=== PATIENT | female | born 1945 | race Caucasian/White ===

== ENCOUNTER 2019-02-13 17:06 | Emergency (ER) | payer MEDICARE, OTHER, SELFPAY ==
[2019-02-13 17:10] VITALS: BMI 32.0
--- NOTE | 2019-02-13 17:12 | ED_ITS ---
Entered by Rich Cevallos, acting as scribe for Documented by User: Fany Benítez MD 02/13/19 20:30 HPI - SOB/Dyspnea General: Chief Complaint: Shortness of Breath/Dyspnea Stated Complaint: sob,cp Time Seen by Provider: 02/13/19 17:14 PFSH ED PFSH: Statuses (acute, chronic, etc) shown below reflect problem list status as previously entered and may not be historically accurate Social History Smoking and tobacco status: never smoked Course Vital Signs: Vital signs: Vital Signs Temperature 98.3 F 02/13/19 17:13 Pulse Rate 88 02/13/19 20:24 Respiratory Rate 20 H 02/13/19 20:24 Blood Pressure 121/61 02/13/19 20:24 Pulse Oximetry 95 02/13/19 20:24 MDM - SOB/Dyspnea MDM Narrative: Medical decision making narrative: I took this patient over from Dr. Aiken. Patient has a long history of pulmonary fibrosis with an upper respiratory infection. She is to continue her Levaquin and I will increase her dose of prednisone over the next 5 days. She is in minimal distress here and is stable for discharge. She is to follow-up with her primary care doctor in 3 to 5 days and return if worsening. Lab Data: Labs: Lab Results 02/13/19 02/13/19 02/13/19 Range/Units 17:25 17:25 17:27 WBC 8.8 (4.0-10.0) 10^3/ uL RBC 3.86 L (4.1-5.3) 10^6/u L Hgb 12.0 (11.5-15.3) g/dL Hct 39.2 (37.0-47.0) % MCV 101.6 H (81-99) fL MCH 31.1 (28.0-34.0) pg MCHC 30.6 (30.0-36.0) g/dL RDW 13.5 (12.1-15.1) % Plt Count 217 (130-400) 10^3/c mm MPV 8.8 (7.4-10.4) fL Neut % (Auto) 74.8 % Lymph % (Auto) 14.5 % [place] % (Auto) 8.2 % Eos % (Auto) 1.8 % Baso % (Auto) 0.2 % Neut # (Auto) 6.6 (1.8-7.7) 10^3/u L Lymph # (Auto) 1.3 (0.8-4.8) 10^3/u L [place] # (Auto) 0.7 (0.2-0.9) 10^3/u L Eos # (Auto) 0.2 (0.0-0.8) 10^3/u L Baso # (Auto) 0.0 (0.0-0.1) 10^3/u L Nucleated RBC % (a uto) 0 % Nucleated RBCs # 0.0 /100WBC Specimen Type Arterial Sample Site Radial, right ABG pH 7.44 (7.35-7.45) ABG pCO2 58.1 H (35-45) mmHg ABG pO2 86.8 (80.0-100.0) mmH g ABG HCO3 39.0 H (22-26) mmol/L ABG Base Excess 12.5 H (-2.0-2.0) mmol/ L Gilberto Test Pos Hematocrit 37.1 (37-47) % Hgb O2 Saturation 95.6 (95-100) % O2 Liters/Min 6.0 % FiO2 44.0 % Cardiac Monitor Technician ID ed Sodium 142 (136-145) mmol/L Potassium 3.4 L (3.5-5.1) mmol/L Chloride 93 L (98-107) mmol/L Carbon Dioxide 37 H (22-29) mmol/L Anion Gap 15.4 (5-19) BUN 15 (8-23) mg/dL Creatinine 0.6 (0.5-0.9) mg/dL Glucose 138 H (74-106) mg/dL Calcium 10.5 H (8.8-10.2) mg/Dl Total Bilirubin 0.2 (0.15-1.2) mg/dL AST 15 (0-32) U/L ALT 15 (0-33) U/L Alkaline Phosphata se 81 (35-105) IU/L Total Protein 7.0 (6.6-8.7) g/dL Albumin 3.9 (3.5-5.2) g/dL Globulin 3.1 (1.3-4.6) g/dL Imaging Data^: CXR: Attestation: I personally reviewed and interpreted this imaging study as follows: My impression: Pulmonary fibrosis with no acute changes Discharge Plan Discharge Patient Disposition: Home, Self-Care Clinical Impression: Acute upper respiratory infection Condition: Stable Prescriptions: New prednisone 50 mg tablet 50 mg PO DAILY Qty: 5 RF: 0 No Action prednisone 20 mg Tablet 20 mg PO DAILY RF: 0 Discharge Orders: Discharge Order (Routine); Ordered 02/13/19 Ordered By: Fany Benítez Referrals: Ulises Narayan DO [Primary Care Provider] - Discharge Diet: Advance as tolerated Discharge Activity: Resume usual activity Patient Instructions: Upper Respiratory Infection - Adult Discharge Date/Time: 02/13/19 20:25 Coding Level of Care Code ED Marble Carver for Chg Fwd Exam Problem Focused Documented by User: Joao Davis DO 02/17/19 07:17 HPI - SOB/Dyspnea General: Chief Complaint: Shortness of Breath/Dyspnea Stated Complaint: sob,cp Time Seen by Provider: 02/13/19 17:14 History of Present Illness: HPI Narrative: 74 yo female presents with shortness of breath and chest pain. Pt states that she is usually on 6liters of o2 at home. Pt states that she has been skipping some her lasix lately. Pt was just started on an inhaler today. Pt states that she has only used 2 treatments of them, and doesn't feel like they're helping her. Pt states that she is chronically on steroids. MD elicited complaint: shortness of breath, cough and chest pain Timing: constant Severity: moderate Exacerbating factors: coughing Relieving factors: oxygen Associated symptoms: Reports chest pain and cough; Deny abdominal pain, dizziness, extremity pain, fever(s), nausea, polydipsia, polyuria or vomiting Treatment prior to arrival: oxygen Review of Systems Const: Denies: fever, chills, body aches, fatigue, malaise or night sweats Eyes: Denies: change in vision or blurry vision ENMT: Denies: throat pain, oral sores/lesions, dental pain, nasal discharge or nasal congestion Card: Reports: chest pain Resp: Reports: shortness of breath and productive cough (mild); Denies: non-productive cough or wheezing GI: Denies: abdominal pain, nausea, vomiting, vomiting blood, coffee grounds in vomit, difficulty swallowing, heartburn/indigestion, diarrhea, constipation, cramping, blood in stool or black tarry stool : Denies: flank pain, painful urination, urinary frequency, urinary urgency, urinary incontinence or blood in urine Musc: Denies: neck pain, back pain, extremity pain, extremity swelling, joint pain or joint swelling Skin/Breast: Denies: rash, itching or redness Neuro: Denies: headache, numbness in extremities, weakness in extremities, changes in sensation, lack of coordination, difficulty walking, frequent falls, dizziness, vertigo or confusion Endo: Denies: excessive urination, excessive thirst, tired all the time or cold intolerance Pete/Lymph: Denies: easy bruising, easy bleeding, petechiae, enlarged lymph nodes or tender lymph nodes PFSH ED PFSH: Statuses (acute, chronic, etc) shown below reflect problem list status as previously entered and may not be historically accurate Social History Smoking and tobacco status: never smoked Physical Exam Const: COMMON NORMALS: average body habitus, oriented x3 and alert GENERAL APPEARANCE: cooperative, comfortable, well kempt and well developed NUTRITIONAL APPEARANCE: obese ORIENTATION/CONSCIOUSNESS: Yes awake, Yes oriented to person and Yes oriented to place HENMT: COMMON NORMALS: normocephalic, head/scalp atraumatic, EAC's normal, TM's normal bilaterally, external nose normal, moist oral mucous membranes and oropharynx normal HEAD & SCALP: normocephalic and atraumatic NOSE: external nose normal EXTERNAL AUDITORY CANAL: EAC's normal TYMPANIC MEMBRANE: TM's normal bilaterally MOUTH: oral and palatal mucosa normal, lip normal and tongue normal THROAT: posterior oropharynx normal and tonsils norm al Eye: COMMON NORMALS: PERRL, EOMs intact bilaterally, conjunctivae normal and no scleral icterus CONJUNCTIVA: Yes conjunctivae normal PUPIL: Yes PERRL Neck/C-Spine: COMMON NORMALS: full ROM, no lymphadenopathy, supple, no meningeal signs and thyroid normal THYROID: thyroid normal and asymmetrical Lymph: LYMPHATIC: no lymphadenopathy noted Chest: COMMONS NORMALS: inspection of chest normal and palpation of chest normal Resp: COMMON NORMALS: normal respiratory effort Cardio: RHYTHM: abnormal rhythm irregularly irregular HEART SOUNDS: no murmurs GI: COMMON NORMALS: normal to inspection, nondistended, normoactive bowel sounds, soft to palpation and no hepatosplenomegaly PALPATION: Yes soft and Yes no hepatosplenomegaly : COMMON NORMALS: Yes no CVA tenderness BLADDER/KIDNEY EXAM: Yes no CVA tenderness Back/Pelvis: COMMON NORMALS: no CVA tenderness LUMBAR SPINE/LOWER BACK: Yes normal to inspection Extremity: COMMON NORMALS: no clubbing, cyanosis or edema, no calf tenderness and no pedal edema GENERAL: Yes edema Neuro: COMMON NORMALS: oriented x3 SENSORIUM/ORIENTATION: Yes alert, Yes oriented to person and Yes oriented to place MENINGEAL SIGNS: Yes no meningeal signs Psych: APPEARANCE: Yes well kempt Skin: COMMON NORMALS: no rashes or lesions noted and skin turgor normal GENERAL SKIN EXAM: no rashes or lesions noted and turgor normal Course Vital Signs: Vital signs: Vital Signs Temperature 98.3 F 02/13/19 17:13 Pulse Rate 88 02/13/19 20:24 Respiratory Rate 20 H 02/13/19 20:24 Blood Pressure 121/61 02/13/19 20:24 Pulse Oximetry 95 02/13/19 20:24 MDM - SOB/Dyspnea Lab Data: Labs: Lab Results 02/13/19 02/13/19 02/13/19 Range/Units 17:25 17:25 17:27 WBC 8.8 (4.0-10.0) 10^3/ uL RBC 3.86 L (4.1-5.3) 10^6/u L Hgb 12.0 (11.5-15.3) g/dL Hct 39.2 (37.0-47.0) % MCV 101.6 H (81-99) fL MCH 31.1 (28.0-34.0) pg MCHC 30.6 (30.0-36.0) g/dL RDW 13.5 (12.1-15.1) % Plt Count 217 (130-400) 10^3/c mm MPV 8.8 (7.4-10.4) fL Neut % (Auto) 74.8 % Lymph % (Auto) 14.5 % [place] % (Auto) 8.2 % Eos % (Auto) 1.8 % Baso % (Auto) 0.2 % Neut # (Auto) 6.6 (1.8-7.7) 10^3/u L Lymph # (Auto) 1.3 (0.8-4.8) 10^3/u L [place] # (Auto) 0.7 (0.2-0.9) 10^3/u L Eos # (Auto) 0.2 (0.0-0.8) 10^3/u L Baso # (Auto) 0.0 (0.0-0.1) 10^3/u L Nucleated RBC % (a uto) 0 % Nucleated RBCs # 0.0 /100WBC Specimen Type Arterial Sample Site Radial, right ABG pH 7.44 (7.35-7.45) ABG pCO2 58.1 H (35-45) mmHg ABG pO2 86.8 (80.0-100.0) mmH g ABG HCO3 39.0 H (22-26) mmol/L ABG Base Excess 12.5 H (-2.0-2.0) mmol/ L Gilberto Test Pos Hematocrit 37.1 (37-47) % Hgb O2 Saturation 95.6 (95-100) % O2 Liters/Min 6.0 % FiO2 44.0 % Cardiac Monitor Technician ID ed Sodium 142 (136-145) mmol/L Potassium 3.4 L (3.5-5.1) mmol/L Chloride 93 L (98-107) mmol/L Carbon Dioxide 37 H (22-29) mmol/L Anion Gap 15.4 (5-19) BUN 15 (8-23) mg/dL Creatinine 0.6 (0.5-0.9) mg/dL Glucose 138 H (74-106) mg/dL Calcium 10.5 H (8.8-10.2) mg/Dl Total Bilirubin 0.2 (0.15-1.2) mg/dL AST 15 (0-32) U/L ALT 15 (0-33) U/L Alkaline Phosphata se 81 (35-105) IU/L Total Protein 7.0 (6.6-8.7) g/dL Albumin 3.9 (3.5-5.2) g/dL Globulin 3.1 (1.3-4.6) g/dL Discharge Plan Discharge Patient Disposition: Home, Self-Care Clinical Impression: Acute upper respiratory infection Condition: Stable Prescriptions: New prednisone 50 mg tablet 50 mg PO DAILY Qty: 5 RF: 0 No Action prednisone 20 mg Tablet 20 mg PO DAILY RF: 0 Discharge Orders: Discharge Order (Routine); Ordered 02/13/19 Ordered By: Fany Benítez Referrals: Ulises Narayan DO [Primary Care Provider] - Discharge Diet: Advance as tolerated Discharge Activity: Resume usual activity Patient Instructions: Upper Respiratory Infection - Adult Discharge Date/Time: 02/13/19 20:25 Coding Level of Care Code ED Marble Carver for Chg Fwd Exam Problem Focused The documentation recorded by the Mart stephens Kialy, accurately reflects the service I personally performed and the decisions made by Susan romero Curtis L, DO Feb 13, 2019 17:06
[2019-02-13 17:13] VITALS: BP 167/63; PULSE 83; RESP 20; TEMP 36.8; O2SAT 98
--- NOTE | 2019-02-13 17:14 | XR_ITS ---
WS: [id number] PORTABLE CHEST HISTORY: Dyspnea COMPARISON: 02/01/2018 Lung volumes are decreased. Scattered interstitial thickening and opacifications over both lungs. Int erstitial thickening is slightly more prominent as compared to the most recent study suggesting a sup erimposed edema on chronic interstitial disease. No pleural effusion or pneumothorax. Cardiac size: Mildly enlarged cardiac silhouette. Mediastinum/Aorta: Mild atherosclerosis aorta. Postsurgical changes involving both shoulders. XR/XR chest 1V portable [id number] IMPRESSION: 1. Mild interstitial edema superimposed on chronic interstitial lung disease. 2. Mild cardiomegaly.
[2019-02-13 17:17] VITALS: O2SAT 98
[2019-02-13 17:33] LABS: Basophils % 0.2 %; Eosinophils # 0.2 10^3/uL (0.0-0.8); Eosinophils % 1.8 %; Hematocrit 39.2 % (37.0-47.0); Lymphocytes # 1.3 10^3/uL (0.8-4.8); Lymphocytes % 14.5 %; Mean Corpuscular HGB Conc 30.6 g/dL (30.0-36.0); Mean Corpuscular Hemoglobin 31.1 pg (28.0-34.0); Mean Corpuscular Volume 101.6 fL (81-99); Mean Platelet Volume 8.8 fL (7.4-10.4); Monocytes # 0.7 10^3/uL (0.2-0.9); Monocytes % 8.2 %; Neutrophils # 6.6 10^3/uL (1.8-7.7); Neutrophils % 74.8 %; Nucleated Red Blood Cells % 0 %; Platelet Count 217 10^3/cmm (130-400); Red Blood Count 3.86 10^6/uL (4.1-5.3); Red Cell Distribution Width 13.5 % (12.1-15.1); White Blood Count 8.8 10^3/uL (4.0-10.0)
[2019-02-13] MEDS: sodium chloride 0.9% 500 ML 999 ML IV (17:33)
[2019-02-13] MEDS: ondansetron 2 mg/ML SDV 2 mL 4 MG IVP (17:34)
[2019-02-13 17:38] LABS: ABG PCO2 58.1 mmHg (35-45); ABG PH Result 7.44 (7.35-7.45); Arterial Blood Gas Hematocrit 37.1 % (37-47); Base Excess ABG 12.5 mmol/L (-2.0-2.0); Blood Gas Allen Test Pos; Blood Gas Sample Site Radial, right; Blood Gas Sample Type Arterial; HGB O2 Sat 95.6 % (95-100); PO2 ABG 86.8 mmHg (80.0-100.0)
[2019-02-13 17:55] LABS: Alanine Aminotransferase 15 U/L (0-33); Albumin Level 3.9 g/dL (3.5-5.2); Alkaline Phosphatase 81 IU/L (35-105); Anion Gap 15.4 (5-19); Aspartate Amino Transferase 15 U/L (0-32); Blood Urea Nitrogen 15 mg/dL (8-23); Calcium 10.5 mg/Dl (8.8-10.2); Carbon Dioxide 37 mmol/L (22-29); Chloride 93 mmol/L (98-107); Globulin 3.1 g/dL (1.3-4.6); Glucose 138 mg/dL (74-106); Potassium 3.4 mmol/L (3.5-5.1); Sodium 142 mmol/L (136-145); Total Bilirubin 0.2 mg/dL (0.15-1.2)
[2019-02-13] MEDS: ipratropium-albuterol 3 mL Neb INHALATION (18:23)
[2019-02-13 18:24] VITALS: PULSE 89; RESP 18; O2SAT 94
[2019-02-13 18:32] VITALS: PULSE 88; RESP 20; O2SAT 90
[2019-02-13 19:31] VITALS: BP 127/78; PULSE 88; RESP 21; O2SAT 98
[2019-02-13 20:24] VITALS: BP 121/61; PULSE 88; RESP 20; O2SAT 95
[2019-02-18 12:37] LABS: Carboxyhemoglobin 1.1 %THgb (0.4-20.1); Total Hemoglobin 12.1 g/dL (12-16)
[2019-02-19 07:48] LABS: Oxygen Device NC
== END 2019-02-13 20:25 | disposition home or self-care (01) ==
PROVIDERS: Family Medicine; Emergency Provider Emergency Medicine; Family Provider Family Medicine; PCP Family Medicine
DX: J06.9 Acute upper respiratory infection, unspecified (principal)
CPT/HCPCS: 36600; 71045; 80053; 82805; 85025; 96360; 96374; 99282; J2405; J2930; J7040

== ENCOUNTER 2019-02-19 07:08 | Outpatient (RCR) | payer MEDICARE, OTHER, SELFPAY | END 2019-03-14 23:59 | disposition home or self-care (01) | LOC: PULRHB 07:08 | PROVIDERS: Family Provider Family Medicine; PCP Family Medicine; Visit Provider Student in an Organized Health Care Education/Training Program | DX: I27.20 Pulmonary hypertension, unspecified (principal) | CPT/HCPCS: 94618; G0239 ==

== ENCOUNTER 2019-03-18 12:46 | Outpatient (RCR) | payer MEDICARE, OTHER, SELFPAY | END 2019-04-12 23:59 | disposition home or self-care (01) | LOC: PULRHB 12:46 | PROVIDERS: Family Provider Family Medicine; PCP Family Medicine; Visit Provider Student in an Organized Health Care Education/Training Program | DX: J84.9 Interstitial pulmonary disease, unspecified (principal) | CPT/HCPCS: G0237; G0238; G0239 ==

== ENCOUNTER 2019-04-13 06:00 | Outpatient (RCR) | payer MEDICARE, OTHER, SELFPAY | END 2019-05-13 23:59 | disposition home or self-care (01) | LOC: PULRHB 06:00 | PROVIDERS: Family Provider Family Medicine; PCP Family Medicine; Visit Provider Student in an Organized Health Care Education/Training Program | DX: I27.20 Pulmonary hypertension, unspecified (principal) | CPT/HCPCS: G0237; G0238; G0239 ==

== ENCOUNTER 2019-05-19 14:36 | Emergency (ER) | payer MEDICARE, OTHER, SELFPAY ==
[2019-05-19 14:48] VITALS: BP 144/87; PULSE 67; RESP 22; TEMP 36.8; O2SAT 93; BMI 32.9
--- NOTE | 2019-05-19 15:17 | ECG_ITS ---
Measurements Intervals [place] Rate: 67 P: 55 LA: 161 QRS: 16 QRSD: 89 T: 81 QT: 384 QTc: 407 SINUS RHYTHM NONSPECIFIC T-WAVE ABNORMALITY Compared to ECG 03/17/2016 14:17:07 T-wave abnormality now present Electronically Signed On 05-19-2019 18:35:33 CDT by Aurelia Cramer M.D. [id number]
--- NOTE | 2019-05-19 15:17 | XR_ITS ---
WS: [id number] CHEST XRAY TECHNIQUE: Portable chest. CLINICAL INFORMATION: cough/congestion COMPARISON: February 13, 2019 FINDINGS: Shallow inspiration. Heart: Cardiomegaly. Lungs: Mild diffuse bilateral interstitial edema with a background of chronic interstitial lung disea se. Interstitial edema appears progressed compared to previous. Recommend correlation for CHF versus pneumonitis. No significant pleural fluid. No focal consolidation. Bones: Right TSA. Left rotator cuff anchors.. XR/XR chest 1V portable [id number] IMPRESSION: 1. 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 2. Interstitial thickening is progressed compared to previous likely due to ed myra versus interstitial pneumonitis. 3. No focal consolidation or significant pleural fluid. 4. Thoracic scoliosis convex right.
--- NOTE | 2019-05-19 15:31 | W.ED.ARRPALP ---
Documented by User: SHAUN Enriquez 05/20/19 08:01 HPI - Arrhythmia/Palpitations General: Chief Complaint: Chest Pain Stated Complaint: heart probs Time Seen by Provider: 05/19/19 15:26 Source: patient Mode of arrival: ambulatory Limitations: no limitations History of Present Illness: HPI narrative: Patient is a 74-year-old female who presents to ED today with complaints of palpitations and racing heart rate intermittently over the past 4 days. Patient tells me she does have a history of this and takes metoprolol prescribed by her shrimp picker Dr. Cramer. She reports no recent changes to her current medications or new medications. She denies chest pains or difficulty breathing. She reports chronic shortness of breath from pulmonary fibrosis-reports she is on 6L O2 continuously. Patient is not been running fevers. She otherwise feels okay. Denies lightheadedness, dizziness, presyncopal or syncopal episodes. MD complaint: heart racing and palpitations Onset (ago): day(s) Duration: intermittent Context: occurred during rest Associated symptoms: Reports no associated symptoms; Deny pre-syncope or syncope Review of Systems General: Reports: 10 or more systems reviewed and unremarkable except in HPI and below Const: Denies: fever or chills Eyes: Denies: change in vision, blurry vision or photophobia Card: Reports: palpitations; Denies: chest pain, edema, lightheadedness, syncope, pre-syncope, shortness of breath on exertion or shortness of breath when lying down Resp: Denies: shortness of breath, productive cough or chest congestion Musc: Denies: neck pain or back pain Skin/Breast: Denies: rash Neuro: Denies: headache, numbness in extremities, weakness in extremities or changes in sensation PFS ED PFSH: Medical History (Updated 05/19/19 @ 16:57 by SHAUN Enriquez) Depression Essential (primary) hypertension GERD (gastroesophageal reflux disease) Hyperlipidemia Surgical History (Updated 04/17/19 @ 12:07 by Terrance Colindres MD) H/O shoulder surgery History of cholecystectomy Social History Smoking and tobacco status: never smoked Second hand smoke exposure: Yes Smoking risk assessment/counseling performed?: No Alcohol intake: never Lives independently: Yes Household members: spouse Marital status: Current occupational status: retired History of recent travel: No Current gender identity: Female Physical Exam Const: COMMON NORMALS: no apparent distress, average body habitus, oriented x3, no limitations, healthy appearing, alert and well nourished Resp: COMMON NORMALS: normal respiratory effort and clear to auscultation bilaterally AUSCULTATION: clear to auscultation bilaterally Cardio: COMMON NORMALS: regular rate and regular rhythm RATE: regular rate RHYTHM: regular rhythm Extremity: COMMON NORMALS: no clubbing, cyanosis or edema, no calf tenderness and no pedal edema Neuro: DAMON COMA SCALE: document GCS findings Damon coma scale eye opening: Spontaneous Damon coma scale verbal response: Orientated Damon coma scale motor response: [place]bey commands [place] coma scale total score: 15 COMMON NORMALS: oriented x3 SENSORIUM/ORIENTATION: Yes alert Skin: COMMON NORMALS: no rashes or lesions noted GENERAL SKIN EXAM: no rashes or lesions noted Course Vital Signs: Vital signs: Vital Signs Temperature 98.2 F 05/19/19 14:48 Pulse Rate 65 05/19/19 16:15 Respiratory Rate 24 H 05/19/19 16:15 Blood Pressure 106/53 05/19/19 16:15 Pulse Oximetry 99 05/19/19 16:15 MDM - Arrhythmia/Palpitations MDM Narrative: Medical decision making narrative: Patient has been normal sinus rhythm on her monitor since arrival. Baseline troponin is 15 and unfortunately I have no previous values therefore we will do a second troponin. Dr. Davis aware of patient and agrees with plan for discharge with a Holter monitor and follow up with her shrimp picker Dr. Cramer if second troponin is negative. Lab Data: Labs: Lab Results 05/19/19 05/19/19 05/19/19 Range/Units 15:44 15:44 15:44 WBC 10.5 H (4.0-10.0) 10^3/ uL RBC 3.65 L (4.1-5.3) 10^6/u L Hgb 11.3 L (11.5-15.3) g/dL Hct 36.8 L (37.0-47.0) % MCV 100.8 H (81-99) fL MCH 31.0 (28.0-34.0) pg MCHC 30.7 (30.0-36.0) g/dL RDW 13.4 (12.1-15.1) % Plt Count 258 (130-400) 10^3/c mm MPV 9.1 (7.4-10.4) fL Neut % (Auto) 75.1 % Lymph % (Auto) 13.9 % [place] % (Auto) 8.5 % Eos % (Auto) 1.8 % Baso % (Auto) 0.4 % Neut # (Auto) 7.9 H (1.8-7.7) 10^3/u L Lymph # (Auto) 1.5 (0.8-4.8) 10^3/u L [place] # (Auto) 0.9 (0.2-0.9) 10^3/u L Eos # (Auto) 0.2 (0.0-0.8) 10^3/u L Baso # (Auto) 0.0 (0.0-0.1) 10^3/u L Nucleated RBC % (a uto) 0 % Nucleated RBCs # 0.0 /100WBC Sodium 142 (136-145) mmol/L Potassium 3.2 L (3.5-5.1) mmol/L Chloride 94 L (98-107) mmol/L Carbon Dioxide 37 H (22-29) mmol/L Anion Gap 14.2 (5-19) BUN 12 (8-23) mg/dL Creatinine 0.6 (0.5-0.9) mg/dL Glucose 145 H (65-115) mg/dL Calculated Osmolal ity 293 (285-295) mOsm/k g Calcium 9.4 (8.5-10.5) mg/dL Total Bilirubin 0.3 (0.15-1.2) mg/dL AST 15 (0-32) U/L ALT 12 (0-33) U/L Alkaline Phosphata se 80 (35-105) IU/L Troponin T Baselin e 15 H (0-10) ng/mL Troponin T 120 Min [place] (0-10) ng/mL Delta Troponin T (0-10) ABS# Total Protein 6.9 (6.6-8.7) g/dL Albumin 3.6 (3.5-5.2) g/dL Globulin 3.3 (1.3-4.6) g/dL 05/19/19 Range/Units 17:15 WBC (4.0-10.0) 10^3/ uL RBC (4.1-5.3) 10^6/u L Hgb (11.5-15.3) g/dL Hct (37.0-47.0) % MCV (81-99) fL MCH (28.0-34.0) pg MCHC (30.0-36.0) g/dL RDW (12.1-15.1) % Plt Count (130-400) 10^3/c mm MPV (7.4-10.4) fL Neut % (Auto) % Lymph % (Auto) % [place] % (Auto) % Eos % (Auto) % Baso % (Auto) % Neut # (Auto) (1.8-7.7) 10^3/u L Lymph # (Auto) (0.8-4.8) 10^3/u L [place] # (Auto) (0.2-0.9) 10^3/u L Eos # (Auto) (0.0-0.8) 10^3/u L Baso # (Auto) (0.0-0.1) 10^3/u L Nucleated RBC % (a uto) % Nucleated RBCs # /100WBC Sodium (136-145) mmol/L Potassium (3.5-5.1) mmol/L Chloride (98-107) mmol/L Carbon Dioxide (22-29) mmol/L Anion Gap (5-19) BUN (8-23) mg/dL Creatinine (0.5-0.9) mg/dL Glucose (65-115) mg/dL Calculated Osmolal ity (285-295) mOsm/k g Calcium (8.5-10.5) mg/dL Total Bilirubin (0.15-1.2) mg/dL AST (0-32) U/L ALT (0-33) U/L Alkaline Phosphata se (35-105) IU/L Troponin T Baselin e (0-10) ng/mL Troponin T 120 Min [place] 15.31 H (0-10) ng/mL Delta Troponin T 0.31 (0-10) ABS# Total Protein (6.6-8.7) g/dL Albumin (3.5-5.2) g/dL Globulin (1.3-4.6) g/dL Imaging Data^: CXR: Radiologist's impression: [facility] [address] [place] [address] XRay Report Signed Patient: Monika High Unit #: [id number] : 1945 Age/Sex: 74 / F ADM Date: 05/19/19 Loc: ER Room/Bed: Attending Dr: Ordering Provider/Ordering MD: Macarena Lee Date of Service: 05/19/19 Procedure(s): XR chest 1V portable [id number] Accession Number(s): [id number] Report Number: [id number] WS: [id number] CHEST XRAY TECHNIQUE: Portable chest. CLINICAL INFORMATION: cough/congestion COMPARISON: February 13, 2019 FINDINGS: Shallow inspiration. Heart: Cardiomegaly. Lungs: Mild diffuse bilateral interstitial edema with a background of chronic interstitial lung disease. Interstitial edema appears progressed compared to previous. Recommend correlation for CHF v ersus pneumonitis. No significant pleural fluid. No focal consolidation. Bones: Right TSA. Left rotator cuff anchors.. XR/XR chest 1V portable [id number] IMPRESSION: 1. Cardiomegaly with diffuse interstitial thickening with a background of chronic interstitial lung disease. 2. Interstitial thickening is progressed compared to previous likely due to edema versus interstitial pneumonitis. 3. No focal consolidation or significant pleural fluid. 4. Thoracic scoliosis convex right. Dictated By: Jaswinder Victoria MD Signed By: Jaswinder Victoria MD Signed Date/Time: 05/19/19 162 DD/ 1617 EKG Data^: EKG 1: EKG interpretation date: 05/19/19 EKG interpretation time: 14:47 Interpretation: Sinus rhythm Rate [address] elevation or depression noted No ectopic beats noted Reviewed by Dr. Davis as well Other EKG comments: Chest X-Ray 05/19/19 15:17 IMPRESSION: 1. Cardiomegaly with diffuse interstitial thickening with a background of chronic interstitial lung disease. 2. Interstitial thickening is progressed compared to previous likely due to edema versus interstitial pneumonitis. 3. No focal consolidation or significant pleural fluid. 4. Thoracic scoliosis convex right. Discharge Plan Discharge Patient Disposition: Home, Self-Care Clinical Impression: Heart palpitations Condition: Stable Prescriptions: No Action aspirin [Adult Aspirin Regimen] 81 mg tablet,delayed release (DR/EC) 81 mg PO DAILY RF: 0 prednisone 10 mg tablet 10 mg PO DAILY RF: 0 simvastatin 20 mg tablet 20 mg PO DAILY RF: 0 metoprolol succinate 100 mg tablet extended release 24 hr 150 mg PO DAILY RF: 0 furosemide 20 mg tablet 20 mg PO BID PRN (Reason: edema) RF: 0 mycophenolate mofetil 500 mg tablet 1,000 mg PO BID RF: 0 sertraline [Zoloft] 50 mg tablet 50 mg PO DAILY RF: 0 albuterol sulfate 2.5 mg /3 mL (0.083 %) solution for nebulization 2.5 mg INHALATION Q4H PRN (Reason: Shortness Of Breath) RF: 0 Multiple Vitamins Tablet 1 tab PO DAILY PRN (Reason: unknown) RF: 0 diltiazem HCl 120 mg capsule,extended release 24hr 120 mg PO DAILY RF: 0 metformin 500 mg tablet extended release 24 hr 250 mg PO DAILY RF: 0 Calcium 500 1 tab PO DAILY PRN (Reason: unknown) RF: 0 Fish Oil 1 cap PO DAILY PRN (Reason: unknown) RF: 0 Vitamin C 1 tab PO DAILY PRN (Reason: unknown) RF: 0 Vitamin D3 2 tab PO DAILY PRN (Reason: unknown) RF: 0 Discharge Orders: Discharge Order (Routine); Ordered 05/19/19 Ordered By: Kenan Guerra Referrals: Ulises Narayan DO [Primary Care Provider] - Discharge Diet: Usual diet Discharge Activity: Increase activity as tolerated Patient Instructions: Palpitations (ED) Activity Restrictions/Additional Instructions: Follow-up with shrimp picker Continue routine medications Return to ER for Chest pain or new concern Discharge Date/Time: 05/19/19 18:01 Coding Level of Care Code ED [place] Frame Builder for Chg Fwd Exam Detailed Documented by User: JOSE Pressley 05/19/19 17:57 HPI - Arrhythmia/Palpitations General: Chief Complaint: Chest Pain Stated Complaint: heart probs Time Seen by Provider: 05/19/19 15:26 PFSH ED PFSH: Medical History (Updated 05/19/19 @ 16:57 by SHAUN Enriquez) Depression Essential (primary) hypertension GERD (gastroesophageal reflux disease) Hyperlipidemia Surgical History (Updated 04/17/19 @ 12:07 by Terrance Colindres MD) H/O shoulder surgery History of cholecystectomy Social History Smoking and tobacco status: never smoked Second hand smoke exposure: Yes Smoking risk assessment/counseling performed?: No Alcohol intake: never Lives independently: Yes Household members: spouse Marital status: Current occupational status: retired History of recent travel: No Current gender identity: Female Course Vital Signs: Vital signs: Vital Signs Temperature 98.2 F 05/19/19 14:48 Pulse Rate 65 05/19/19 16:15 Respiratory Rate 24 H 05/19/19 16:15 Blood Pressure 106/53 05/19/19 16:15 Pulse Oximetry 99 05/19/19 16:15 MDM - Arrhythmia/Palpitations Lab Data: Labs: Lab Results 05/19/19 05/19/19 05/19/19 Range/Units 15:44 15:44 15:44 WBC 10.5 H (4.0-10.0) 10^3/ uL RBC 3.65 L (4.1-5.3) 10^6/u L Hgb 11.3 L (11.5-15.3) g/dL Hct 36.8 L (37.0-47.0) % MCV 100.8 H (81-99) fL MCH 31.0 (28.0-34.0) pg MCHC 30.7 (30.0-36.0) g/dL RDW 13.4 (12.1-15.1) % Plt Count 258 (130-400) 10^3/c mm MPV 9.1 (7.4-10.4) fL Neut % (Auto) 75.1 % Lymph % (Auto) 13.9 % [place] % (Auto) 8.5 % Eos % (Auto) 1.8 % Baso % (Auto) 0.4 % Neut # (Auto) 7.9 H (1.8-7.7) 10^3/u L Lymph # (Auto) 1.5 (0.8-4.8) 10^3/u L [place] # (Auto) 0.9 (0.2-0.9) 10^3/u L Eos # (Auto) 0.2 (0.0-0.8) 10^3/u L Baso # (Auto) 0.0 (0.0-0.1) 10^3/u L Nucleated RBC % (a uto) 0 % Nucleated RBCs # 0.0 /100WBC Sodium 142 (136-145) mmol/L Potassium 3.2 L (3.5-5.1) mmol/L Chloride 94 L (98-107) mmol/L Carbon Dioxide 37 H (22-29) mmol/L Anion Gap 14.2 (5-19) BUN 12 (8-23) mg/dL Creatinine 0.6 (0.5-0.9) mg/dL Glucose 145 H (65-115) mg/dL Calculated Osmolal ity 293 (285-295) mOsm/k g Calcium 9.4 (8.5-10.5) mg/dL Total Bilirubin 0.3 (0.15-1.2) mg/dL AST 15 (0-32) U/L ALT 12 (0-33) U/L Alkaline Phosphata se 80 (35-105) IU/L Troponin T Baselin e 15 H (0-10) ng/mL Troponin T 120 Min [place] (0-10) ng/mL Delta Troponin T (0-10) ABS# Total Protein 6.9 (6.6-8.7) g/dL Albumin 3.6 (3.5-5.2) g/dL Globulin 3.3 (1.3-4.6) g/dL 05/19/19 Range/Units 17:15 WBC (4.0-10.0) 10^3/ uL RBC (4.1-5.3) 10^6/u L Hgb (11.5-15.3) g/dL Hct (37.0-47.0) % MCV (81-99) fL MCH (28.0-34.0) pg MCHC (30.0-36.0) g/dL RDW (12.1-15.1) % Plt Count (130-400) 10^3/c mm MPV (7.4-10.4) fL Neut % (Auto) % Lymph % (Auto) % [place] % (Auto) % Eos % (Auto) % Baso % (Auto) % Neut # (Auto) (1.8-7.7) 10^3/u L Lymph # (Auto) (0.8-4.8) 10^3/u L [place] # (Auto) (0.2-0.9) 10^3/u L Eos # (Auto) (0.0-0.8) 10^3/u L Baso # (Auto) (0.0-0.1) 10^3/u L Nucleated RBC % (a uto) % Nucleated RBCs # /100WBC Sodium (136-145) mmol/L Potassium (3.5-5.1) mmol/L Chloride (98-107) mmol/L Carbon Dioxide (22-29) mmol/L Anion Gap (5-19) BUN (8-23) mg/dL Creatinine (0.5-0.9) mg/dL Glucose (65-115) mg/dL Calculated Osmolal ity (285-295) mOsm/k g Calcium (8.5-10.5) mg/dL Total Bilirubin (0.15-1.2) mg/dL AST (0-32) U/L ALT (0-33) U/L Alkaline Phosphata se (35-105) IU/L Troponin T Baselin e (0-10) ng/mL Troponin T 120 Min [place] 15.31 H (0-10) ng/mL Delta Troponin T 0.31 (0-10) ABS# Total Protein (6.6-8.7) g/dL Albumin (3.5-5.2) g/dL Globulin (1.3-4.6) g/dL EKG Data^: EKG 1: Other EKG comments: Chest X-Ray 05/19/19 15:17 IMPRESSION: 1. Cardiomegaly with diffuse interstitial thickening with a background of chronic interstitial lung disease. 2. Interstitial thickening is progressed compared to previous likely due to edema versus interstitial pneumonitis. 3. No focal consolidation or significant pleural fluid. 4. Thoracic scoliosis convex right. Discharge Plan Discharge Patient Disposition: Home, Self-Care Clinical Impression: Heart palpitations Condition: Stable Prescriptions: No Action aspirin [Adult Aspirin Regimen] 81 mg tablet,delayed release (DR/EC) 81 mg PO DAILY RF: 0 prednisone 10 mg tablet 10 mg PO DAILY RF: 0 simvastatin 20 mg tablet 20 mg PO DAILY RF: 0 metoprolol succinate 100 mg tablet extended release 24 hr 150 mg PO DAILY RF: 0 furosemide 20 mg tablet 20 mg PO BID PRN (Reason: edema) RF: 0 mycophenolate mofetil 500 mg tablet 1,000 mg PO BID RF: 0 sertraline [Zoloft] 50 mg tablet 50 mg PO DAILY RF: 0 albuterol sulfate 2.5 mg /3 mL (0.083 %) solution for nebulization 2.5 mg INHALATION Q4H PRN (Reason: Shortness Of Breath) RF: 0 Multiple Vitamins Tablet 1 tab PO DAILY PRN (Reason: unknown) RF: 0 diltiazem HCl 120 mg capsule,extended release 24hr 120 mg PO DAILY RF: 0 metformin 500 mg tablet extended release 24 hr 250 mg PO DAILY RF: 0 Calcium 500 1 tab PO DAILY PRN (Reason: unknown) RF: 0 Fish Oil 1 cap PO DAILY PRN (Reason: unknown) RF: 0 Vitamin C 1 tab PO DAILY PRN (Reason: unknown) RF: 0 Vitamin D3 2 tab PO DAILY PRN (Reason: unknown) RF: 0 Discharge Orders: Discharge Order (Routine); Ordered 05/19/19 Ordered By: Kenan Guerra Referrals: Ulises Narayan DO [Primary Care Provider] - Discharge Diet: Usual diet Discharge Activity: Increase activity as tolerated Patient Instructions: Palpitations (ED) Activity Restrictions/Additional Instructions: Follow-up with shrimp picker Continue routine medications Return to ER for Chest pain or new concern Discharge Date/Time: 05/19/19 18:01 Coding Level of Care Code ED [place] Frame Builder for Ruthg Fwd Exam Detailed
[2019-05-19 16:00] LABS: Basophils % 0.4 %; Eosinophils # 0.2 10^3/uL (0.0-0.8); Eosinophils % 1.8 %; Hematocrit 36.8 % (37.0-47.0); Hemoglobin 11.3 g/dL (11.5-15.3); Lymphocytes # 1.5 10^3/uL (0.8-4.8); Lymphocytes % 13.9 %; Mean Corpuscular HGB Conc 30.7 g/dL (30.0-36.0); Mean Corpuscular Volume 100.8 fL (81-99); Mean Platelet Volume 9.1 fL (7.4-10.4); Monocytes # 0.9 10^3/uL (0.2-0.9); Monocytes % 8.5 %; Neutrophils # 7.9 10^3/uL (1.8-7.7); Neutrophils % 75.1 %; Nucleated Red Blood Cells % 0 %; Platelet Count 258 10^3/cmm (130-400); Red Blood Count 3.65 10^6/uL (4.1-5.3); Red Cell Distribution Width 13.4 % (12.1-15.1); White Blood Count 10.5 10^3/uL (4.0-10.0)
[2019-05-19 16:15] VITALS: BP 106/53; PULSE 65; RESP 24; O2SAT 99
[2019-05-19 16:22] LABS: Alanine Aminotransferase 12 U/L (0-33); Albumin Level 3.6 g/dL (3.5-5.2); Alkaline Phosphatase 80 IU/L (35-105); Anion Gap 14.2 (5-19); Aspartate Amino Transferase 15 U/L (0-32); Blood Urea Nitrogen 12 mg/dL (8-23); Calcium 9.4 mg/dL (8.5-10.5); Carbon Dioxide 37 mmol/L (22-29); Chloride 94 mmol/L (98-107); Globulin 3.3 g/dL (1.3-4.6); Glucose 145 mg/dL (65-115); Osmolality Calculated 293 mOsm/kg (285-295); Potassium 3.2 mmol/L (3.5-5.1); Sodium 142 mmol/L (136-145); Total Bilirubin 0.3 mg/dL (0.15-1.2); Total Protein 6.9 g/dL (6.6-8.7)
[2019-05-19 16:23] LABS: Troponin(5th) Baseline 15 ng/mL (0-10)
--- NOTE | 2019-05-19 17:17 | ECG_ITS ---
Measurements Intervals [place] Rate: 67 P: 52 HI: 167 QRS: 19 QRSD: 92 T: 75 QT: 347 QTc: 368 SINUS RHYTHM WITH SINUS ARRHYTHMIA NONSPECIFIC T-WAVE ABNORMALITY WARNING: DATA QUALITY MAY AFFECT INTERPRETATION INTERPRETATION BASED ON A DEFAULT AGE OF 40 YEARS Compared to ECG 03/17/2016 14:17:07 T-wave abnormality now present Electronically Signed On 05-19-2019 18:36:50 CDT by Aurelia Cramer M.D. [email or web address]
--- NOTE | 2019-05-19 17:21 | W.ED.CHESTPA ---
HPI - Chest Pain General: Chief Complaint: Chest Pain Stated Complaint: heart probs Time Seen by Provider: 05/19/19 15:26 Source: patient Mode of arrival: ambulatory Limitations: no limitations PFSH ED PFSH: Medical History (Updated 05/19/19 @ 16:57 by SHAUN Enriquez) Depression Essential (primary) hypertension GERD (gastroesophageal reflux disease) Hyperlipidemia Surgical History (Updated 04/17/19 @ 12:07 by Terrance Colindres MD) H/O shoulder surgery History of cholecystectomy Social History Smoking and tobacco status: never smoked Second hand smoke exposure: Yes Smoking risk assessment/counseling performed?: No Alcohol intake: never Lives independently: Yes Household members: spouse Marital status: Current occupational status: retired History of recent travel: No Current gender identity: Female Course ED course: 1721, received patient from Alejandro Lee PA-C, awaiting second troponin laboratory, then plan is to discharge with Holter monitor order and follow-up with cardiology if lab shows no change. Patient appears well, denies any pain. wjw 1755, second troponin came back without any significant change. Reviewed with patient with recommendations for plans as described per Ms. Lee. Patient reports understanding and agreed to plan. Vital Signs: Vital signs: Vital Signs Temperature 98.2 F 05/19/19 14:48 Pulse Rate 65 05/19/19 16:15 Respiratory Rate 24 H 05/19/19 16:15 Blood Pressure 106/53 05/19/19 16:15 Pulse Oximetry 99 05/19/19 16:15 MDM - Chest Pain Lab Data: Labs: Lab Results 05/19/19 05/19/19 05/19/19 Range/Units 15:44 15:44 15:44 WBC 10.5 H (4.0-10.0) 10^3/ uL RBC 3.65 L (4.1-5.3) 10^6/u L Hgb 11.3 L (11.5-15.3) g/dL Hct 36.8 L (37.0-47.0) % MCV 100.8 H (81-99) fL MCH 31.0 (28.0-34.0) pg MCHC 30.7 (30.0-36.0) g/dL RDW 13.4 (12.1-15.1) % Plt Count 258 (130-400) 10^3/c mm MPV 9.1 (7.4-10.4) fL Neut % (Auto) 75.1 % Lymph % (Auto) 13.9 % [place] % (Auto) 8.5 % Eos % (Auto) 1.8 % Baso % (Auto) 0.4 % Neut # (Auto) 7.9 H (1.8-7.7) 10^3/u L Lymph # (Auto) 1.5 (0.8-4.8) 10^3/u L [place] # (Auto) 0.9 (0.2-0.9) 10^3/u L Eos # (Auto) 0.2 (0.0-0.8) 10^3/u L Baso # (Auto) 0.0 (0.0-0.1) 10^3/u L Nucleated RBC % (a uto) 0 % Nucleated RBCs # 0.0 /100WBC Sodium 142 (136-145) mmol/L Potassium 3.2 L (3.5-5.1) mmol/L Chloride 94 L (98-107) mmol/L Carbon Dioxide 37 H (22-29) mmol/L Anion Gap 14.2 (5-19) BUN 12 (8-23) mg/dL Creatinine 0.6 (0.5-0.9) mg/dL Glucose 145 H (65-115) mg/dL Calculated Osmolal ity 293 (285-295) mOsm/k g Calcium 9.4 (8.5-10.5) mg/dL Total Bilirubin 0.3 (0.15-1.2) mg/dL AST 15 (0-32) U/L ALT 12 (0-33) U/L Alkaline Phosphata se 80 (35-105) IU/L Troponin T Baselin e 15 H (0-10) ng/mL Troponin T 120 Min [place] (0-10) ng/mL Delta Troponin T (0-10) ABS# Total Protein 6.9 (6.6-8.7) g/dL Albumin 3.6 (3.5-5.2) g/dL Globulin 3.3 (1.3-4.6) g/dL 05/19/19 Range/Units 17:15 WBC (4.0-10.0) 10^3/ uL RBC (4.1-5.3) 10^6/u L Hgb (11.5-15.3) g/dL Hct (37.0-47.0) % MCV (81-99) fL MCH (28.0-34.0) pg MCHC (30.0-36.0) g/dL RDW (12.1-15.1) % Plt Count (130-400) 10^3/c mm MPV (7.4-10.4) fL Neut % (Auto) % Lymph % (Auto) % [place] % (Auto) % Eos % (Auto) % Baso % (Auto) % Neut # (Auto) (1.8-7.7) 10^3/u L Lymph # (Auto) (0.8-4.8) 10^3/u L [place] # (Auto) (0.2-0.9) 10^3/u L Eos # (Auto) (0.0-0.8) 10^3/u L Baso # (Auto) (0.0-0.1) 10^3/u L Nucleated RBC % (a uto) % Nucleated RBCs # /100WBC Sodium (136-145) mmol/L Potassium (3.5-5.1) mmol/L Chloride (98-107) mmol/L Carbon Dioxide (22-29) mmol/L Anion Gap (5-19) BUN (8-23) mg/dL Creatinine (0.5-0.9) mg/dL Glucose (65-115) mg/dL Calculated Osmolal ity (285-295) mOsm/k g Calcium (8.5-10.5) mg/dL Total Bilirubin (0.15-1.2) mg/dL AST (0-32) U/L ALT (0-33) U/L Alkaline Phosphata se (35-105) IU/L Troponin T Baselin e (0-10) ng/mL Troponin T 120 Min [place] 15.31 H (0-10) ng/mL Delta Troponin T 0.31 (0-10) ABS# Total Protein (6.6-8.7) g/dL Albumin (3.5-5.2) g/dL Globulin (1.3-4.6) g/dL EKG Data^: EKG 2: Attestation: I personally reviewed and interpreted this EKG as follows: (1735, SR with arrhythmia, rate 67 irregular, normal P-wave, no ST elevation) Discharge Plan Discharge Patient Disposition: Home, Self-Care Clinical Impression: Heart palpitations Condition: Stable Prescriptions: No Action aspirin [Adult Aspirin Regimen] 81 mg tablet,delayed release (DR/EC) 81 mg PO DAILY RF: 0 prednisone 10 mg tablet 10 mg PO DAILY RF: 0 simvastatin 20 mg tablet 20 mg PO DAILY RF: 0 metoprolol succinate 100 mg tablet extended release 24 hr 150 mg PO DAILY RF: 0 furosemide 20 mg tablet 20 mg PO BID PRN (Reason: edema) RF: 0 mycophenolate mofetil 500 mg tablet 1,000 mg PO BID RF: 0 sertraline [Zoloft] 50 mg tablet 50 mg PO DAILY RF: 0 albuterol sulfate 2.5 mg /3 mL (0.083 %) solution for nebulization 2.5 mg INHALATION Q4H PRN (Reason: Shortness Of Breath) RF: 0 Multiple Vitamins Tablet 1 tab PO DAILY PRN (Reason: unknown) RF: 0 diltiazem HCl 120 mg capsule,extended release 24hr 120 mg PO DAILY RF: 0 metformin 500 mg tablet extended release 24 hr 250 mg PO DAILY RF: 0 Calcium 500 1 tab PO DAILY PRN (Reason: unknown) RF: 0 Fish Oil 1 cap PO DAILY PRN (Reason: unknown) RF: 0 Vitamin C 1 tab PO DAILY PRN (Reason: unknown) RF: 0 Vitamin D3 2 tab PO DAILY PRN (Reason: unknown) RF: 0 Discharge Orders: Discharge Order (Routine); Ordered 05/19/19 Ordered By: Kenan Guerra Referrals: Ulises Narayan DO [Primary Care Provider] - Discharge Diet: Usual diet Discharge Activity: Increase activity as tolerated Patient Instructions: Palpitations (ED) Activity Restrictions/Additional Instructions: Follow-up with sports fitness and wellness director Continue routine medications Return to ER for Chest pain or new concern Coding Level of Care Code ED Hot Frame Tender for Srinivasa Morelos
[2019-05-19 17:47] LABS: Troponin 5 2HR 15.31 ng/mL (0-10); Troponin 5 2HR Delta 0.31 ABS# (0-10)
--- NOTE | 2019-05-20 14:32 | DCPLANNER ---
construction manager had message to schedule a follow up appointment for patient with [facility]. construction manager called [facility], spoke with Anamaria, a follow up appointment is scheduled for Sunday, July 09, 2019 at 3:[address] Cramer. Clinic will call patient with appointment information.
--- NOTE | 2019-05-21 10:14 | DCPLANNER ---
biofuels plant manager had an outpatient order for a 24 hour halter monitor for patient. biofuels plant manager faxed order to centralized scheduling, will call for appointment information. biofuels plant manager called [facility], spoke with Anamaria to confirm that [facility] had received the order.
--- NOTE | 2019-06-04 09:38 | DCPLANNER ---
human capital manager called [facility] to confirm that a follow up appointment had been scheduled for patient. human capital manager spoke with Anamaria, also asked about the 24 hour halter monitor. human capital manager was told that clinic is not doing 24 hour monitors at this time, that an appointment would be scheduled and clinic will call patient with appointment information.
--- NOTE | 2019-06-05 13:32 | DCPLANNER ---
Anamaria from [facility] called ed case manager and informed ed case manager that a follow up appointment is scheduled for Monday, June 17, 2019 at 3:[address] Cramer. Clinic will call patient with appointment information.
--- NOTE | 2019-07-01 15:31 | DCPLANNER ---
Patient did attend appointment scheduled for 06.17.19 with [facility].
--- NOTE | 2019-08-12 15:42 | DCPLANNER ---
Patient attended follow up appointment with [facility].
== END 2019-05-19 18:01 | disposition home or self-care (01) ==
PROVIDERS: Physician Assistant; Emergency Provider Nurse Practitioner Family; Family Provider Family Medicine; PCP Family Medicine
DX: R07.9 Chest pain, unspecified (principal); R00.2 Palpitations; F32.9 Major depressive disorder, single episode, unspecified; I10 Essential (primary) hypertension; K21.9 Gastro-esophageal reflux disease without esophagitis; E87.5 Hyperkalemia; Z79.82 Long term (current) use of aspirin; Z90.49 Acquired absence of other specified parts of digestive tract
CPT/HCPCS: 12345; 36415; 71045; 80053; 84484; 85025; 93005; 99282; 99283

== ENCOUNTER 2019-07-14 06:00 | Outpatient (RCR) | payer MEDICARE, OTHER, SELFPAY | END 2019-08-12 23:59 | disposition home or self-care (01) | LOC: PULRHB 06:00 | PROVIDERS: PCP Family Medicine; Visit Provider Student in an Organized Health Care Education/Training Program | DX: I27.20 Pulmonary hypertension, unspecified (principal) | CPT/HCPCS: G0237; G0238; G0239 ==

== ENCOUNTER 2019-08-13 06:00 | Outpatient (RCR) | payer MEDICARE, OTHER, SELFPAY | END 2019-09-12 23:59 | disposition home or self-care (01) | LOC: PULRHB 06:00 | PROVIDERS: PCP Family Medicine; Visit Provider Student in an Organized Health Care Education/Training Program | DX: J84.9 Interstitial pulmonary disease, unspecified (principal) | CPT/HCPCS: G0237; G0238; G0239 ==

== ENCOUNTER 2019-09-13 06:00 | Outpatient (RCR) | payer MEDICARE, OTHER, SELFPAY | END 2019-10-13 23:59 | disposition home or self-care (01) | LOC: PULRHB 06:00 | PROVIDERS: PCP Family Medicine; Visit Provider Student in an Organized Health Care Education/Training Program | DX: J84.9 Interstitial pulmonary disease, unspecified (principal) | CPT/HCPCS: G0237; G0238; G0239 ==

== ENCOUNTER → 2019-10-02 14:11 | Outpatient (BNVA) | payer MEDICARE, OTHER, SELFPAY | PROVIDERS: PCP Family Medicine; Visit Provider Internal Medicine Rheumatology | DX: J84.89 Other specified interstitial pulmonary diseases (principal); I10 Essential (primary) hypertension; J84.10 Pulmonary fibrosis, unspecified | CPT/HCPCS: 99203 ==

== ENCOUNTER 2019-10-08 13:01 | Outpatient (CLI) | payer MEDICARE, OTHER, SELFPAY ==
--- NOTE | 2019-10-08 13:06 | XR_ITS ---
WS: [id number] PELVIS: AP VIEW SUBMITTED HISTORY: fall COMPARISON: 08/22/2010 New lucencies through the LEFT femoral neck and proximal femur. No displacement. No sclerosis or heal ing fracture. Enthesopathy from the iliac crest. Mild bilateral SI joint narrowing. XR/XR pelvis 1-2V* [id number] IMPRESSION: Suspicious but indeterminate for LEFT femoral neck and proximal femur fracture. Recommend follow-up CT evaluation. Notified Augusto Marie MD at 10/08/2019 1:40 PM.
--- NOTE | 2019-10-08 14:17 | CT_ITS ---
WS: [id number] CT PELVIS WITHOUT HISTORY: rule out fracture TECHNIQUE: Contiguous imaging is performed of the pelvis without contrast. Coronal and sagittal refor mats are reviewed. All CT scans at [facility] use at least one of these dose optimization techniques: automated exposure control; mA and/or kV adjustment per patient size (includes targeted exams where dose is matched to clinical indication); or iterative reconstruction. DLP: 859.07 mGycm COMPARISON: 10/08/2019 No fracture noted in the LEFT hip. Femoral head is well-seated in the acetabulum. Mild bilateral hip joint arthritis. No pubic rami fracture. No soft tissue abnormality or hematoma other than a granulom a in the posterior gluteal region. CT/CT pelvis wo con [id number] IMPRESSION: No LEFT hip fracture. Notified Augusto Marie MD at 10/08/2019 2:36 PM.
== END 2019-10-08 13:02 | disposition home or self-care (01) ==
LOC: RADWPI 13:04
PROVIDERS: Family Provider Family Medicine; PCP Family Medicine; Visit Provider Internal Medicine Rheumatology
DX: Z03.89 Encounter for observation for other suspected diseases and conditions ruled out (principal); W19.XXXA Unspecified fall, initial encounter
CPT/HCPCS: 72170; 72192